=== PATIENT | male | born 1985 | race Caucasian/White ===

== ENCOUNTER 2020-06-07 00:32 | Emergency (ER) | payer SELFPAY | END 2020-06-07 01:07 | disposition left against medical advice (07) | LOC: ERS 00:32 | DX: Z53.21 Procedure and treatment not carried out due to patient leaving prior to being seen by health care provider (principal) ==

== ENCOUNTER 2020-11-14 17:08 | Emergency (ER) | payer SELFPAY ==
[2020-11-14 18:20] LABS: #Basophils 0.1 thou/uL (0.0-0.2); #Eosinphils 0.4 thou/uL (0.0-0.7); #Lymphocytes 1.9 thou/uL (1.20-3.40); #Monocytes 0.9 thou/uL (0.11-0.59); #Neutrophils 6.3 thou/uL (1.40-6.50); %Basophils 0.6 % (0.0-1.0); %Eosinophils 4.4 % (0.0-10.0); %Lymphocytes 20.1 % (21.0-51.0); %Monocytes 8.9 % (0.0-10.0); Hemoglobin 15.2 g/dL (14.0-18.0); Mean Corpuscular HGB CONC 34.3 g/dL (32.0-36.0); Mean Corpuscular Hemoglobin 30.9 pg (27.0-31.0); Mean Corpuscular Volume 90.3 fL (78.0-98.0); Mean Platelet Volume 8.6 fL (7.4-10.4); Platelet Count 160 thou/uL (130-400); RBC Distribution Width 11.8 % (11.5-14.5); White Blood Cell (WBC) Count 9.6 thou/uL (4.8-10.8)
[2020-11-14 18:42] LABS: ALT (SGPT) 32 U/L (8-55); AST (SGOT) 23 U/L (5-34); Alkaline Phosphatase 64 U/L (40-110); Anion Gap 13 mmol/L (10-20); BUN (Urea Nitrogen) 11 mg/dL (8.9-20.6); Bilirubin, Total 0.3 mg/dL (0.2-1.2); Calc. Creatinine Clearance 0 mL/min (70-130); Calcium 9.7 mg/dL (7.8-10.44); Carbon Dioxide 24 mmol/L (22-29); Chloride 106 mmol/L (98-107); Globulin 3.5 g/dL (2.4-3.5); Glucose 115 mg/dL (70-105); Potassium 3.6 mmol/L (3.5-5.1); Protein, Total 7.5 g/dL (6.0-8.3); Sodium 139 mmol/L (136-145)
[2020-11-14] MEDS ORDERED: Morphine 2 MG/ML VIAL ONE (19:00)
[2020-11-14] MEDS ORDERED: Ketorolac Tromethamine 30 MG/ML VIAL ONE (19:00)
[2020-11-14 19:21] LABS: SARS-CoV-2 NAA Rapid Test Not Detected (NotDetected)
== END 2020-11-14 19:48 | disposition home or self-care (01) ==
LOC: ERS 17:08
DX: R06.02 Shortness of breath (principal); Z20.822 Contact with and (suspected) exposure to COVID-19; E11.9 Type 2 diabetes mellitus without complications; I10 Essential (primary) hypertension
CPT/HCPCS: 0241U; 36415; 71045; 80053; 85025; 96372; J1885; J2270

== ENCOUNTER 2021-09-26 15:12 | Emergency (ER) | payer OTHER ==
[2021-09-26] MEDS ORDERED: Ketorolac Tromethamine 30 MG/ML VIAL ONE (16:25)
== END 2021-09-26 16:29 | disposition home or self-care (01) ==
LOC: ERS 15:12
DX: K02.9 Dental caries, unspecified (principal); E11.9 Type 2 diabetes mellitus without complications; I10 Essential (primary) hypertension
CPT/HCPCS: 96372; 99282; J1885